=== PATIENT | female | born 1975 | race Caucasian/White ===

== ENCOUNTER 2019-04-11 08:50 | Emergency (ER) | payer OTHER ==
[~2019-04-11] VITALS: Ht 157.5 cm; Wt 79.4 kg
--- OUTSIDE RECORDS SUMMARY | 2019-04-11 08:53 | XMS REPORT | Summary of Care ---
Author Author [facility] Organization [facility] Address Unknown Phone Unavailable Encounter HQ Encntr_alias(FIN) [id number] Date(s): 01/21/18 - 01/21/18 [facility] [address] [place] [phone] Discharge Disposition: Home or Self Care Attending Physician: Jeancarlos Knutson MD Vital Signs No data available for this section Problem List No data available for this section Allergies, Adverse Reactions, Alerts No data available for this section Medications No data available for this section Results No data available for this section Immunizations No data available for this section Procedures No data available for this section Social History No data available for this section Assessment and Plan No data available for this section
--- OUTSIDE RECORDS SUMMARY | 2019-04-11 08:53 | XMS REPORT | Summary of Care ---
Author Organization Unknown Address Unknown Phone Unavailable Encounter HQ Encntr_alias([facility]) [id number] Date(s): 12/14/14 - 12/14/14 [facility] Outpatient Imaging - [address] [phone] Discharge Disposition: Home Physician Attending: Carmella Ya MD Vital Signs No data available for [...]
--- OUTSIDE RECORDS SUMMARY | 2019-04-11 08:53 | XMS REPORT | Summary of Care ---
Author Author JEFF MCCLAIN N.P. Unknown Address [facility] Phone Unavailable Care Team Providers Care Yarn Dry Room Worker Name Role Phone R.N. Unavailable Unavailable Unavailable Unavailable Functional Status Name Dates Details Functional status health issues are not documented Status: Name Dates Details Cognitive status health issues are not documented Status: Problems Name Dates Details Decreased libido (799.81, R68.82) Status: Active Encounter for routine gynecological examination with Papanicolaou smear of cervix (V72.31, Z01.419) Status: Active Pelvic pain in female (625.9, R10.2) Status: Active Visit for screening mammogram (V76.12, Z12.31) Status: Active Screening for osteoporosis (V82.81, Z13.820) Status: Active Medications Name Dates Details Synthroid 137 MCG Oral Tablet R.N. * Start : 15-Oct-2012 Active Calcium TABS * Refills: 0 R.N. Active Allergies and Adverse Reactions Name Dates Details Azithromycin PACK (Allergy) Status: Active Past Medical History Name Dates Details History of Thyroid Cancer (V10.87) Status: Resolved Procedures Procedure Dates Details History of Thyroid Surgery Total Thyroidectomy Completed History of Breast Surgery Enlargement Procedure Bilateral Completed History of Dilation And Curettage Completed History of Laparoscopy With Total Hysterectomy For Uterus 250g Or Less Completed History of Appendectomy Completed Immunization Name Dates Details Immunizations not documented Family History Name Dates Details Family history of Ovarian Cancer (V16.41) Status: Active Name Dates Details Family history of Hypertension (V17.49) Status: Active Family history of Diabetes Mellitus (V18.0) Status: Active Name Dates Details Family history of Diabetes Mellitus (V18.0) Status: Active Social History Name Dates Details - Status: Name Dates Details Current every day smoker Vital Signs Date Test Result Details No Known Vitals to report Results Date Description Value Details 31-Jul-20179:18 [place] Digital Mammo Screen Kai w sonam [id number] Digital Mammo Screen Kai MA w sonam SEE NOTES Comments: CLINICAL: /Routine. Current study was evaluated with a Computer Aided Detection (CAD) system. COMPARISON:Comparison is made to exams dated: 09/26/2014 mammogram - [facility], 10/15/2012 mammogram - [facility], and 12/29/2008 mammogram. TECHNIQUE: Digital Breast Tomosynthesis was performed and utilized forInterpretation. [employer] Version 1.3 was utilized for computer aided detection. FINDINGS:The tissue of both breasts is heterogeneously dense, which could obscuredetection of small masses. Patient complains of intermittent breast pain and/or tenderness. Bilateralsilicone subpectoral breast implants are noted and imaged with routine andimplant displaced views. Bilateral breast implants are stable. There are benign calcifications in bothbreasts. No significant masses, calcifications, or other findings are seen in eitherbreast. There has been no significant interval change.IMPRESSION: BENIGNRECOMMENDATION:Clinical management of the patient's daisha ast complaints isrecommended. There is no mammographic evidence of malignancy. A 1 year screening mammogramis recommended.(08/01/2018) This exam was interpreted at [id number] for [facility]. Natty eagle/penrad:07/31/2017 09:36:28 Production Machine Tender(s): [facility]/2 Mammogram BI-RADS: 2 Benign--Read by: Natty Dawson MDDictated Date/time: 07/31/17 09:36Electronically Signed by: Natty Dawson MD 07/31/1709:36FINAL REPORT Plan of Care Name Dates Details Planned Observations Planned Goals not documented Instructions Name Dates Details Instructions not documented Encounters Appointment; MARY BARTON M.D. Encounter Diagnosis: Problem not documented On: 28-Jan-2017 9:00
--- OUTSIDE RECORDS SUMMARY | 2019-04-11 08:53 | XMS REPORT | Continuity of Care Document ---
Author Author [email or web address] Address Unknown Phone Unavailable Care Team Providers Care Footwear Sales Representative Name Role Phone [facility] [employer] Unavailable Unavailable Problems Problem Status Onset Date Classification Date Reported Comments Source ROUTINE SCREENING LAST MMG W/MH Active 06/23/2017 [facility] SCREENING MAMMO Active 09/19/2014 [facility] Medications No Data Provided for This Section Allergies, Adverse Reactions, Alerts No Known Medication Allergies Immunizations No Data Provided for This Section Results No Data Provided for This Section Pathology Reports No Data Provided for This Section Diagnostic Reports Report Value Date Source Renal Stone CT HISTORY: - r31.21 Asymptomatic microscopic hematuria; M54.5 Low back pain TECHNIQUE: Contiguous axial CT images of the abdomen and pelvis were obtained without contrast. Additionally, both coronal and sagittal reformats were also submitted for interpretation. DOSE: Total DLP 784 mGy/cm. This exam was performed according to the departmental dose-optimization program which includes automated exposure control, adjustment of the mA and/or kV according to patient size, and/or use of iterative reconstruction technique. COMPARISON: None available. FINDINGS: The lung bases are clear. The inferior aspect of the heart is grossly unremarkable. There is no pleural or pericardial effusion. Bilateral breast implants are partially seen. There is no hydronephrosis, nephrolithiasis, or evidence of cystic or solid renal mass. Incidental note is made of a retroaortic left renal vein. The ureters are normal in course and caliber. The bladder appears normal. Two left hemipelvic phleboliths are noted. The unenhanced liver, spleen, pancreas, gallbladder, and adrenals are grossly unremarkable. There is no pathologic by size criteria retroperitoneal or mesenteric lymphadenopathy. Scattered colonic diverticula are seen without evidence of adjacent inflammatory change to suggest acute diverticulitis. The appendix is not definitively identified; however, there are no secondary findings to suggest acute appendicitis. The remainder of the unopacified bowel is grossly unremarkable. Patient has undergone prior hysterectomy. There is no abnormal adnexal mass. Visualized bones appear normal. IMPRESSION: No evidence of acute abdominopelvic pathology. [id number] 01/21/2018 [facility] SHAHRZAD w sonam incl CAD MA CLINICAL: /Routine. Current study was evaluated with a Computer Aided Detection (CAD) system. COMPARISON:Comparison is made to exams dated: 09/26/2014 mammogram - [facility], 10/15/2012 mammogram - [facility], and 12/29/2008 mammogram. TECHNIQUE: Digital Breast Tomosynthesis was performed and utilized for Interpretation. [employer] Version 1.3 was utilized for computer aided detection. FINDINGS: The tissue of both breasts is heterogeneously dense, which could obscure detection of small masses. Patient complains of intermittent breast pain and/or tenderness. Bilateral silicone subpectoral breast implants are noted and imaged with routine and implant displaced views. Bilateral breast implants are stable. There are benign calcifications in both breasts. No significant masses, calcifications, or other findings are seen in either breast. There has been no significant interval change. IMPRESSION: BENIGN RECOMMENDATION:Clinical management of the patient's breast complaints is recommended. There is no mammographic evidence of malignancy. A 1 year screening mammogram is recommended.(08/01/2018) This exam was interpreted at [id number] for [facility] [place]. Natty eagle/adrian:07/31/2017 09:36:28 Automobile Carpets Molder(s): Asha Ortiz [facility] letter sent: BI-RADS 1/2 Mammogram BI-RADS: 2 Benign 07/31/2017 [facility] Consultation Notes No Data Provided for This Section Discharge Summaries No Data Provided for This Section History and Physicals No Data Provided for This Section Vital Signs No Data Provided for This Section Encounters Location Location Details Encounter Type Encounter Number Reason For Visit Attending Provider ADM Date DC Date Status Source [facility] [id number] Carmella Ya 09/26/2014 09/27/2014 [facility] [place] [facility] [id number] Carmella Ya 12/14/2014 12/15/2014 [facility] [id number] Carmella Ya 07/31/2017 08/01/2017 [facility] [place] [facility] [id number] Jeancarlos Knutson 01/21/2018 01/22/2018 [facility] [place] Procedures No Data Provided for This Section Assessment and Plan No Data Provided for This Section Plan of Care No Data Provided for This Section Social History Social History Date Source No data available for this section 01/22/2018 [facility] [place] No data available for this section 08/01/2017 [facility] No data available for this section 12/15/2014 [facility] [place] Family History No Data Provided for This Section Advance Directives No Data Provided for This Section Functional Status No Data Provided for This Section
--- OUTSIDE RECORDS SUMMARY | 2019-04-11 08:53 | XMS REPORT | Summary of Care ---
Author Organization Unknown Address Unknown Phone Unavailable Encounter HQ Krisntr_gallo(SERGIO) [id number] Date(s): 09/26/14 - 09/26/14 [facility] [address] Discharge Disposition: Home Physician Attending: Carmella Ya MD Physician_Referring: Carmelal Ya MD Reason for Visit SCREENING MAMMO Problem List No data available for this section Allergies, Adverse Reactions, Alerts No data available for this section Medications No data available for this section Medications Administered During Your Visit No data available for this section Immunizations No data available for this section
--- OUTSIDE RECORDS SUMMARY | 2019-04-11 08:53 | XMS REPORT | Summary of Care ---
Author Author [facility] Organization [facility] Address Unknown Phone Unavailable Encounter HQ Krisntr_gallo(FIN) [id number] Date(s): 07/31/17 - 07/31/17 [facility] [address] [place] [address]- [phone] Discharge Disposition: Home or Self Care Attending Physician: Carmella Ya MD Referring Physician: Carmella Ya MD Vital Signs No data [...]
--- OUTSIDE RECORDS SUMMARY | 2019-04-11 08:53 | XMS REPORT ---
Author Author [facility] Address Unknown Phone Unavailable Care Team Providers Care Contact Lens Manufacturer Name Role Phone Unavailable Unavailable Problems This patient has no known problems. Allergies, Adverse Reactions, Alerts This patient has no known allergies or adverse reactions. Medications This patient has no known medications.
[2019-04-11] MEDS ORDERED: KETOROLAC TROMETHAMINE 60 MG/2 ML VIAL IM ONE (09:30)
--- NOTE | 2019-04-11 09:47 | Diagnostic Imaging Report ---
EXAMINATION: FOOT 3 VIEW LT - HOPD INDICATION: Pain, swelling of lateral foot COMPARISON: None FINDINGS: No acute fracture or dislocation. Alignment is anatomic. Mild soft tissue swelling. Bipartite hallux sesamoid. Overhanging erosions at the fourth metatarsal base are nonspecific but can be seen in the setting of gout. IMPRESSION: No acute fracture or dislocation. Erosions of the fourth metatarsal base are nonspecific but can be seen in the setting of gout. Signed by: Alexander Bonner MD on 04/11/2019 9:44 AM
[2019-04-11] MEDS ORDERED: KETOROLAC TROMETHAMINE 60 MG/2 ML VIAL ONE (09:55)
[2019-04-11 10:01] VITALS: BP 120/75
== END 2019-04-11 10:03 | disposition home or self-care (01) ==
LOC: FSED 08:50
DX: S93.622A Sprain of tarsometatarsal ligament of left foot, initial encounter (principal); X50.1XXA Overexertion from prolonged static or awkward postures, initial encounter; Y92.512 Supermarket, store or market as the place of occurrence of the external cause
CPT/HCPCS: 73630; 99283; J1885